=== PATIENT | female | born 1975 | race Asian ===

== ENCOUNTER 2022-03-03 18:42 | Emergency (ER) | payer BC ==
[~2022-03-03] VITALS: Ht 160 cm; Wt 74.8 kg
[2022-03-03] MEDS ORDERED: AMLODIPINE BES2.5 MG PO (19:04)
[2022-03-03 19:10] LABS: BASOPHILS ABSOLUTE AUTO 0.05 K/mm3 (0.00-0.23); BASOPHILS PERCENT AUTO 1 % (0-2); EOSINOPHILS PERCENT AUTO 2 % (0-6); Hematocrit 43.9 % (33.0-51.0); IMMATURE GRAN ABSOLUTE AUTO 0.03 K/mm3 (0.00-0.10); IMMATURE GRAN PERCENT AUTO 0 % (0-1); LYMPHOCYTES ABSOLUTE AUTO 4.02 K/mm3 (0.84-5.20); LYMPHOCYTES PERCENT AUTO 41 % (21-46); MONOCYTES ABSOLUTE AUTO 0.58 K/mm3 (0.16-1.47); MONOCYTES PERCENT AUTO 6 % (4-13); Mean Corpuscular HGB 29.8 pg (26.0-34.0); Mean Corpuscular HGB Conc 34.2 g/dL (31.5-36.5); Mean Corpuscular Volume 87 fL (80-100); Mean Platelet Volume 10.2 fL (9.1-12.4); NEUTROPHILS ABSOLUTE AUTO 5.04 K/mm3 (1.96-9.15); NEUTROPHILS PERCENT AUTO 51 % (41-73); Platelet Count 260 K/mm3 (150-400); RDW Coefficient Variation 12.5 % (11.7-14.2); RDW Standard Deviation 39.7 fL (35.1-46.3); Red Blood Cell Count 5.03 M/mm3 (3.80-5.20); White Blood Cell Count 9.92 K/mm3 (4.00-11.30)
[2022-03-03 19:33] LABS: Albumin, Blood 4.2 g/dL (3.4-5.0); Bilirubin, Total 0.4 mg/dL (0.1-1.0); Bun/Creatinine Ratio 17.1 (12.0-20.0); Calcium, Blood 9.9 mg/dL (8.5-10.1); Creatinine, Blood 0.58 mg/dL (0.40-1.00); Globulin, Blood 4.1 g/dL (2.2-4.0); Potassium, Blood 3.4 mmol/L (3.5-5.5); Total Protein, Blood 8.3 g/dL (6.4-8.2)
== END 2022-03-03 20:48 | disposition home or self-care (01) ==
LOC: ER 18:42
PROVIDERS: Emergency Medicine
DX: R07.0 Pain in throat (principal); R00.0 Tachycardia, unspecified; I10 Essential (primary) hypertension; Z79.899 Other long term (current) drug therapy
CPT/HCPCS: 36415; 71260; 80053; 84484; 85025; 93005; 93010; Q9967

== ENCOUNTER → 2022-06-18 | Outpatient (CLI) | payer BC ==
[~2022-06-18] MED LIST: AMLODIPINE BES2.5 MG PO
[2022-06-19 10:40] LABS: Candida species (DNA Probe) Negative (NEGATIVE); G. vaginalis (DNA Probe) Negative (NEGATIVE); T. vaginalis (DNA Probe) Negative (NEGATIVE)
== END ==
LOC: LAB SHORT 15:30 → LAB 15:30
PROVIDERS: Nurse Practitioner Women's Health
DX: Z01.419 Encounter for gynecological examination (general) (routine) without abnormal findings (principal); N76.0 Acute vaginitis; Z11.51 Encounter for screening for human papillomavirus (HPV); Z11.3 Encounter for screening for infections with a predominantly sexual mode of transmission
CPT/HCPCS: 87480; 87510; 87660; 88175

== ENCOUNTER 2024-08-05 07:47 | Day surgery (SDC) | payer BC ==
[~2024-08-05] VITALS: Ht 160 cm; Wt 74.2 kg
[2024-08-05] MEDS ORDERED: VITAMIN D310 MC4 (08:17)
[2024-08-05] MEDS ORDERED: Lactated Ringer's 1,000 ML IV ONE ×2 (08:17→09:06)
[2024-08-05] MEDS ORDERED: ASPIR 8181 M1 (08:17)
[2024-08-05] MEDS ORDERED: NEBI5 (08:17)
[2024-08-05] MEDS ORDERED: propofoL 50 ML IV ONE (08:17)
[2024-08-05] MEDS ORDERED: FAMO10 (08:18)
[2024-08-05] MEDS ORDERED: METF500 (08:18)
[2024-08-05] MEDS ORDERED: Crestor40 MG (08:18)
[2024-08-05 10:31] VITALS: BP 115/78
== END 2024-08-05 10:37 | disposition home or self-care (01) ==
LOC: ORSCSDS 07:47
PROVIDERS: Internal Medicine Gastroenterology
PROC: 0DJ08ZZ Inspection of Upper Intestinal Tract, Via Natural or Artificial Opening Endoscopic (ICD-10-PCS; principal; 2024-08-05 09:30)
PROC: 0DJD8ZZ Inspection of Lower Intestinal Tract, Via Natural or Artificial Opening Endoscopic (ICD-10-PCS; principal; 2024-08-05 09:30)
DX: Z12.11 Encounter for screening for malignant neoplasm of colon (principal); K21.9 Gastro-esophageal reflux disease without esophagitis; K57.30 Diverticulosis of large intestine without perforation or abscess without bleeding; I10 Essential (primary) hypertension; E66.9 Obesity, unspecified; Z68.30 Body mass index [BMI] 30.0-30.9, adult; E78.5 Hyperlipidemia, unspecified; E11.9 Type 2 diabetes mellitus without complications; Z79.899 Other long term (current) drug therapy
CPT/HCPCS: 43235; G0121; 82947; J2704; J7120

== ENCOUNTER 2025-05-15 10:51 | Day surgery (SDC) | payer BC ==
[~2025-05-15] VITALS: Ht 157.5 cm; Wt 76.2 kg
[~2025-05-15 10:51] MED LIST changes: +ASPIR 8181 M1; +Crestor40 MG; +FAMO10; +Lidocaine 1%-Epineph 1:200000 30 ML SDV ONE; +METF500; +NEBI5; +Tranexamic Acid 100 ML IV ONE; +VITAMIN D310 MC4
[2025-05-15] MEDS ORDERED: LOSA50 PO (11:14)
[2025-05-15] MEDS ORDERED: METF500 PO (11:14)
[2025-05-15] MEDS ORDERED: Midazolam HCl 1MG / ML 2ML Vial ONE (11:50)
[2025-05-15] MEDS ORDERED: FentaNYL Citrate 50 MCG/ML 2 ML Injection ONE (11:50)
[2025-05-15] MEDS ORDERED: SuccINYLCHOLINE Chloride 100 MG/5 ML 5MLSYR ONE (11:54)
[2025-05-15] MEDS ORDERED: Dexamethasone Sod Phos 10 MG/ML 1ML VIAL ONE (12:01)
[2025-05-15] MEDS ORDERED: Ondansetron HCl 2 MG / ML 2ML Vial ONE (12:01)
[2025-05-15] MEDS ORDERED: Bupivacaine 0.5% HCl 5 MG/ML 30MLVIAL INJ ONE (12:11)
--- NOTE | 2025-05-15 12:40 | NUR ---
05/15/25 1240 SHU DELCID PT HAD BLADDER INCONTINENCE DURING PROCEDURE/ PT OWN UNDERWEAR REMOVED AND CLEAN DRY BETTINA PLACED UNDER PT
--- NOTE | 2025-05-15 12:51 | NUR ---
05/15/25 1251 MILLIE RESENDIZ PT DENIES NAUSEA AND DECLINES WARM BLANKET. SOME DISCOMFORT 2-3/10 TO THROAT. PT CONTINUES TO FALL BACK TO SLEEP. VITALS STABLE AT THIS TIME. PT ON ROOM AIR. O2 SAT 100%, PULSE 62, BP 125/68, 20
[2025-05-15 13:39] VITALS: BP 136/69
== END 2025-05-15 13:52 | disposition home or self-care (01) ==
LOC: ORSCSDS 10:51
PROVIDERS: Otolaryngology
PROC: 0CBPXZZ Excision of Tonsils, External Approach (ICD-10-PCS; principal; 2025-05-15 12:30)
PROC: 0CBN0ZZ Excision of Uvula, Open Approach (ICD-10-PCS; principal; 2025-05-15 12:30)
DX: J03.91 Acute recurrent tonsillitis, unspecified (principal); J35.8 Other chronic diseases of tonsils and adenoids; D10.39 Benign neoplasm of other parts of mouth; E11.9 Type 2 diabetes mellitus without complications; E05.00 Thyrotoxicosis with diffuse goiter without thyrotoxic crisis or storm; G47.33 Obstructive sleep apnea (adult) (pediatric); I10 Essential (primary) hypertension; Z79.82 Long term (current) use of aspirin; Z79.84 Long term (current) use of oral hypoglycemic drugs; Z79.899 Other long term (current) drug therapy
CPT/HCPCS: 82947; 88304; 88305; A9270; J0330; J1100; J2250; J2405; J2704; J3010